=== PATIENT | male | born 1965 | race Caucasian/White ===

== ENCOUNTER 2022-03-29 09:11 | Outpatient (CLI) | payer BC, SELFPAY ==
[2022-03-29 14:00] LABS: Albumin* 4.9 g/dL (3.3-5.0); Chloride* 103 mmol/L (96-114); Potassium* 4.4 mmol/L (3.6-5.1); Sodium* 139 mmol/L (135-149)
[2022-03-29 14:02] LABS: Carbon Dioxide* 27 mmol/L (20-32); Cholesterol* 137 mg/dL (90-199); Creatinine* 0.9 mg/dL (0.5-1.5); Estimated Glomerular Filt Rate 101 ml/min
[2022-03-29 14:03] LABS: Alanine Aminotransferase* 82 U/L (4-50); Alkaline Phosphatase* 94 U/L (40-150); Aspartate Amino Transferase* 44 U/L (12-35); Bilirubin Total* 0.5 mg/dL (0.1-1.5); Blood Urea Nitrogen* 13 mg/dL (7-30); Calcium* 9.2 mg/dL (8.4-10.6); Glucose* 141 mg/dL (60-115); HDL Cholesterol* 42 mg/dL (>=40); LDL Cholesterol Calculated 75 mg/dL (<100); Total Protein* 6.8 g/dL (6.0-8.3); Triglycerides* 102 mg/dL (40-149)
== END 2022-03-29 09:12 | disposition home or self-care (01) ==
PROVIDERS: PCP Physician Assistant Medical; Visit Provider Physician Assistant Medical
DX: E11.9 Type 2 diabetes mellitus without complications (principal); I10 Essential (primary) hypertension; E78.5 Hyperlipidemia, unspecified
CPT/HCPCS: 80053; 80061

== ENCOUNTER 2022-04-04 15:30 | Outpatient (RCR) | payer BC, SELFPAY ==
--- NOTE | 2022-04-04 16:36 | OT.OPODN ---
OT Outpatient Ortho Daily Note OT Outpatient Ortho Daily Note Start: 11/15/21 14:31 Freq: Status: Active Protocol: Document 04/04/22 16:18 LCN (Rec: 04/04/22 16:36 LCN Desktop) E-signed By Donya Fu OTR/L, CLT Type of Note Type of Note Type of Note Daily Note,Discharge Note Visit Number 10 Insurance Information Insurance Information Blue [employer] Outpatient History/Precautions Current Condition/Medical Diagnosis Referring Provider Milad Hernandez PA-C Treatment Diagnosis R lateral epicondyle Date of Onset 09/15/21 Medical Conditions HTN Medical/Functional History Medical History Reviewed Yes Prior Level of Function/Mobility 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 lives with . Enjoys hunting, fishing, yard work and walking the dog 2x/day, internet research and humor in his phone. Daughter has twins 3 months old. Son lives locally. Social History Current Occupation retired Ortho Subjective Subjective Subjective Blood pressure improving to lower 150's less dizziness with doing cervical stretches. Pt still having mild numbness at t4 - back of shoulder but no longer radiating down his L UE. R elbow pain is resolved, balanced and equal strength for B SH elbow and wrist planes. Pt's pain came on 2 months ago while on fishing trip, carrying gas cans, managing large fishing pole, casting and netting. Hurst during weighted carry, lifting and gripping/pinching, and tool use tasks (10subsides quickly after) at R lateral epicondyle area Pain Assessment Pain Present Pain Present Pain Reported Location L levator, rhomboid Description Radiating,Dull, Achy Intensity 1 R elbow Intensity 0 OT OP Daily Ortho Note/Assessment Self-Care/Home Management Self-Care/Home Management Minutes ( 0 minutes) Self-Care/Home Management Comments . Therapeutic Exercise Therapeutic Exercise Minutes (minutes) 0 Ultrasound Ultrasound Location & Joint Position R lateral epicondyle Ultrasound Comments as needed to support reduction of edema for tissue healing and improved tissue as needed to support reduction of edema for tissue healing and improved tissue mobility Iontophoresis Iontophoresis Location R lateral epicondyle Iontophoresis Treatment Parameters & Extended Wear Patch, Rational/Set Up Dexamethasone,Instruction In Removal,Instruction In Rationale,Instruct Desired Response Iontophoresis Duration (minutes) 0 Manual Therapy Manual Therapy Minutes (minutes) 35 Manual Therapy Comments No longer having pinching noted at coracoid area during H ADD, improved to 40 of 40. HABD to 105 of 105 B. OTR continues IASTM and soft tissue mobilization with Graston #4 to mobilize soft tissue surrounding L scapula ( paraspinals, levator, rhomboids, submandibular, upper, middle lower trap, subclavicular space and serratus posterior muscle groups) to support freedom of movement and healing of structures L cervical and upper quadrant areas. Reviewed sleep positioning, has more sx if scapula is pressed forward ( numbness at post triceps, improves if sleeping on side of GH. It has yuriy prone to these issues since having his C5/C6 spinal fusion 5-6 years ago. Shoulder Gross Strength Shoulder L Testing Position Sitting Flexion 4 Good Extension 5 Normal Abduction 5 Normal Adduction 5 Normal External Rotation 4 Good Internal Rotation 5 Normal Elbow/Forearm Gross Strength Elbow and Forearm R Testing Position Sitting Flexion 5 Normal Extension 5 Normal Pronation 5 Normal Supination 5 Normal Wrist Gross Strength Wrist R Flexion 5 Normal Extension 4 Good Ulnar Deviation 5 Normal Radial Deviation 4 Good Goniometric Comments Goniometric Comments Goniometric Comments WNL for all BUE planes. No history of UE fractures or shoulder issues. 04/04/22-- H ADD, improved to 40 of 40. HABD to 105 of 105 B . Pt is still having mild numbness at t4 - back of shoulder but no longer radiating down his L UE; has prone to these issues since having his C5/C6 spinal fusion 5-6 years ago. 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 No pain w pos 2 and R pinching planes. Postural alignment-- Scapular position of L side tipped anterior by 1 inch, vertebral border rotated 30 degrees into downward rotation, tight pec minor, rhomboid locked in long position and humerus is rotated medially. Hand Pinch/Shoemaker Apprentice Strength Hand Left Shoemaker Apprentice Strength Position 1 (lbs) 80 Shoemaker Apprentice Strength Position 2 (lbs) 92 Lateral Pinch Strength (lbs) 29 Three Point Pinch (lbs) 27 Right Shoemaker Apprentice Strength Position 1 (lbs) 92 Shoemaker Apprentice Strength Position 2 (lbs) 102 Lateral Pinch Strength (lbs) 24 Three Point Pinch (lbs) 18 Edema Assessment Additional Information Comments 02/07/22- Pt has increase of paresthesia with R lateral flexion + chin tuck, replicates his nocturnal symptoms. 12/13/21-- tender during pronated gripping At eval-- Painful 6/10 at [facility], [facility] during gripping 3 pt pinch, resisted WR EX, RD and pronation. OT Objective Data Hand Hand Dominance Right Sensation Sensation Assessment Summary Comments No sensory changes Upper Extremity Special Tests Elbow Cozens Test Negative Left,Negative Right Wrist Durkan's Test Negative Left,Negative Right Tenosynovitis Wrist Finklestein Test Negative Left,Negative Right Degenerative Arthritis Hand Trapeziometacarpal Joint Grind Test Negative Left,Negative Right OT Problems Problems Problems Decreased Strength,Decreased Range of Motion,Lifting, Gripping,Pinching Other Problems Opening Containers Patient Potential Excellent Assessment Assessment Assessment Pt doing better with shoulder/ periscapular pain, no longer has clicking/impingement at rib 1 coracoid area of L side, but intermittent numbness at T4 to posterior GH joint.. Less dizziness noted with cervical stretches. Jorge Coreas is an active 56 y/o male with stiffness, Painful 6/10 at [facility], [facility] during gripping 3 pt pinch, resisted WR EX, RD and pronation with onset of R elbow lateral epicondylitis during a fishing trip in early September. He would benefit from skilled OT to address these areas. Occupational Therapy Treatment Plan - OP Potential Rehabilitation Potential Excellent Goals Target Date 01/15/22 Treatment Plan Treatment Plan Evaluation,Edema Control, Iontophoresis,Joint Mobilization,Manual Therapy, Splinting,Ultrasound, Therapeutic Activities Other Treatment Plan 1-2x/wk x 2 weeks, then 1x/ week x 4 weeks Expected Frequency 1-2x Week Comment Summary Cont with IASTM, US, add kinesiotaping, teach self STM. Check gripping exercises in sup/pron/neutral, adding eccentric lowering with 1-2# weight. OT Treatment Minutes Treatment Minutes Timed Treatment Minutes 35 Total Treatment Minutes 35 Occupational Therapy Billing Units Billing Units Iontophoresis 0 Manual Therapy 2 Self Care/Home Management 0 Therapeutic Exercise 0 Ultrasound 0 Certification Certification I Certify That: Therapy Services Provided, Therapy Plan Established, Therapy Plan Reviewed Discharge Note Discharge Note Discharge Summary After 10 visits of OT, R elbow pain is resolved, balanced and equal strength for B SH elbow and wrist planes. Blood pressure improving to lower 150's less dizziness with doing cervical stretches. Pt still having intermittent mild numbness at t4 - back of shoulder but no longer radiating down his L UE. Pt doing better with shoulder/ periscapular pain, no longer has clicking/impingement at rib 1 coracoid area of L side, but intermittent numbness at T4 to posterior GH joint.. Less dizziness noted with cervical stretches. 04/04/22-- H ADD, improved to 40 of 40. HABD to 105 of 105 B . Pt is still having mild numbness at t4 - back of shoulder but no longer radiating down his L UE; has prone to these issues since having his C5/C6 spinal fusion 5-6 years ago. 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 No pain w pos 2 and R pinching planes. Date of First Visit for Therapy 11/15/21 Date of Last Visit for Therapy 04/04/22 Initial Primary Functional Limitations/ Jorge Coreas is an active Concerns 56 y/o male with stiffness, Painful 6/10 at [facility], [facility] during gripping 3 pt pinch, resisted WR EX, RD and pronation with onset of R elbow lateral epicondylitis during a fishing trip in early September. He would benefit from skilled OT to address these areas. Initial Pain Level 6 Pain Level at Discharge 0 Interventions Provided During Treatment Ice/Cold/Vasopneumatic, Iontophoresis,Manual Therapy, Orthotics/Braces,Therapeutic Exercise,Ultrasound Recommendations/Reason for Discharge Met All Therapy Goals Discharge Instructions Continue B SH /EL and WR ther ex and cervical stretches.
== END 2022-04-04 16:40 | disposition home or self-care (01) ==
PROVIDERS: PCP Physician Assistant Medical; Visit Provider Physician Assistant Medical
DX: M77.11 Lateral epicondylitis, right elbow (principal); Z51.89 Encounter for other specified aftercare
CPT/HCPCS: 97033; 97035; 97110; 97140; 97165; 97535; X5282

== ENCOUNTER 2022-06-28 09:00 | Outpatient (CLI) | payer BC, SELFPAY | END 2022-06-28 09:01 | disposition home or self-care (01) | LOC: NFLDREF 06-30 07:49 | PROVIDERS: PCP Physician Assistant Medical; Referring Provider Physician Assistant Medical; Visit Provider Physician Assistant Medical | DX: I10 Essential (primary) hypertension (principal) | CPT/HCPCS: 80048 ==

== ENCOUNTER 2023-04-19 09:21 | Outpatient (CLI) | payer BC, SELFPAY | END 2023-04-19 09:22 | disposition home or self-care (01) | LOC: NFLDREF 04-26 16:03 | PROVIDERS: PCP Physician Assistant Medical; Referring Provider Physician Assistant Medical; Visit Provider Physician Assistant Medical | DX: E11.9 Type 2 diabetes mellitus without complications (principal); E78.5 Hyperlipidemia, unspecified; I10 Essential (primary) hypertension; Z12.5 Encounter for screening for malignant neoplasm of prostate | CPT/HCPCS: 80053; 80061; 82043; 82570; G0103 ==

== ENCOUNTER 2023-08-09 08:59 | Outpatient (CLI) | payer BC, SELFPAY | END 2023-08-09 09:00 | disposition home or self-care (01) | LOC: NFLDREF 08-10 07:20 | PROVIDERS: PCP Physician Assistant Medical; Referring Provider Physician Assistant Medical; Visit Provider Physician Assistant Medical | DX: E11.9 Type 2 diabetes mellitus without complications (principal); F10.10 Alcohol abuse, uncomplicated; R79.89 Other specified abnormal findings of blood chemistry | CPT/HCPCS: 84450; 84460 ==

== ENCOUNTER 2024-02-21 08:26 | Outpatient (CLI) | payer BC, SELFPAY | END 2024-02-21 08:27 | disposition home or self-care (01) | LOC: NFLDREF 02-22 08:20 | PROVIDERS: PCP Physician Assistant Medical; Referring Provider Physician Assistant Medical; Visit Provider Physician Assistant Medical | DX: E11.9 Type 2 diabetes mellitus without complications (principal); E78.5 Hyperlipidemia, unspecified; E78.2 Mixed hyperlipidemia; I10 Essential (primary) hypertension; R79.89 Other specified abnormal findings of blood chemistry; F32.A Depression, unspecified; G47.33 Obstructive sleep apnea (adult) (pediatric); Z99.89 Dependence on other enabling machines and devices; Z79.4 Long term (current) use of insulin; F32.0 Major depressive disorder, single episode, mild; F10.10 Alcohol abuse, uncomplicated | CPT/HCPCS: 80053; 80061; 82043; 82570; 84443; G0103 ==

== ENCOUNTER 2025-03-05 09:40 | Outpatient (CLI) | payer BC, SELFPAY | END 2025-03-05 09:41 | disposition home or self-care (01) | LOC: NFLDREF 03-08 19:07 | PROVIDERS: PCP Physician Assistant Medical; Referring Provider Physician Assistant Medical; Visit Provider Physician Assistant Medical | DX: Z00.00 Encounter for general adult medical examination without abnormal findings (principal); R79.89 Other specified abnormal findings of blood chemistry; E11.9 Type 2 diabetes mellitus without complications; Z79.4 Long term (current) use of insulin; I10 Essential (primary) hypertension; E78.2 Mixed hyperlipidemia | CPT/HCPCS: 80053; 80061; 82043; 82570; 84443; G0103 ==